=== PATIENT | male | born 1970 | race Caucasian/White ===

== ENCOUNTER 2017-09-25 04:52 | Emergency (ER) | payer SELFPAY ==
[~2017-09-25] VITALS: Ht 167.6 cm; Wt 77.0 kg
[2017-09-25 05:09] VITALS: Ht 167.6 cm; Wt 77.0 kg
[2017-09-25] MEDS ORDERED: LIDOCAINE 2%/EPI MPF (SDV) 20 ML VIAL INJ ONE (05:30)
[2017-09-25] MEDS ORDERED: DIPHTH/TET/ACEL PERTUSS (ADULT) 0.5 ML VIAL IM* ONE (05:30)
--- NOTE | 2017-09-25 06:25 | ERD ---
ER Documentation Chief Complaint Chief Complaint fell on glass bottle, 1cm facelac near edge of nose bridge, squirting blood HPI This is a 47-year-old male with no known past medical history who is presenting with a facial laceration after a fall. The patient admits to being intoxicated. He drinks 6-7 beers and tequila as well while watching the [employer] game last night. At some point, he lost his balance and fell. His face landed on a glass bottle and he sustained multiple lacerations to the face , one of which was bleeding. They could not get the bleeding controlled at home , so they came here for further evaluation. The patient does not endorse losing consciousness. He does not have a headache. He does not endorse vision changes. He has no neck or back pain. He has no cuts or abrasions or other signs of trauma to the rest of the body. The patient does have dried blood in his mouth, but he does not endorse any injury to his teeth or mouth. He states it was bleeding so much that he was getting into his mouth. He had no nausea or vomiting. He did not vomit blood. The patient denies feeling sick recently. The patient denies fever or chills. The patient denies lightheadedness or dizziness. The patient has had no chest pain or shortness of breath trouble breathing. The patient denies abdominal pain or changes to bowel movements or urination. The patient has had no focal deficits. The patient has had no weakness or numbness or tingling to the face or extremities. ROS All systems reviewed and are negative except as per history of present illness. Medications Home Meds Active Scripts Amoxicillin/Potassium Clav (Amox-Clav 875-125 mg Tablet) 875-125 mg Tab, 1 TAB PO BID for 7 Days, #14 TAB Prov:CARI CHO MD 09/25/17 Allergies Allergies: Coded Allergies: No Known Allergy (Unverified , 09/25/17) PMhx/Soc Medical and Surgical Hx: pt denies Medical Hx, pt denies Surgical Hx History of Surgery: No Hx Psychiatric Problems: No Hx Alcohol Use: Yes (SOCIALLY) Hx Substance Use: No Smoking Status: Never smoker FmHx Family History: No diabetes Physical Exam Vitals Vital Signs Date Time Temp Pulse Resp B/P Pulse Ox O2 Delivery O2 Flow Rate FiO2 09/25/17 09:09 88 20 115/88 100 Room Air 09/25/17 07:32 84 20 127/76 100 Room Air 09/25/17 05:21 92 17 144/90 100 Room Air 09/25/17 05:09 85 20 147/100 100 Physical Exam Const: No apparent distress, well-developed, well-nourished Head: Atraumatic, normocephalic Face: 2.5 cm linear nonbleeding laceration to the right forehead. 2.5 cm linear nonbleeding laceration to the right cheek. 3.0 cm angulated nonbleeding laceration to the right cheek. 0.5 cm punctate lesion with active bleeding. Soft tissue edema to the right cheek. Eyes: Normal Conjunctiva. Extraocular movements intact. ENT: Normal External Ears, Nose and Mouth. Neck: Full range of motion. ~ No meningismus. Resp: Clear to auscultation bilaterally Cardio: Regular rate and rhythm, no murmurs Abd: Soft, non tender, non distended. Normal bowel sounds Skin: No petechiae or rashes Back: No midline or flank tenderness Ext: No cyanosis, or edema Neur: Awake and alert, oriented 4. Cranial nerves intact. No facial droop. Normal strength and sensation in all extremities. Results 24 hrs Current Medications Medications (Trade) Dose Ordered Sig/Farida Route PRN Reason Start Time Stop Time Status Last Admin Dose Admin Lidocaine/ Epinephrine (Xylocaine 2%/ Epi Mpf(Sdv)) 20 ml ONCE ONCE INJ 09/25/17 05:30 09/25/17 05:31 DC 09/25/17 05:33 Diphtheria/ Tetanus/Acell Pertussis 0.5 ml 0.5 ml ONCE ONCE IM* 09/25/17 05:30 09/25/17 05:31 DC 09/25/17 05:33 Ampicillin Sodium/ Sulbactam Sodium (Unasyn 3gm/NS (Pmx)) 100 ml @ 100 mls/hr ONCE ONCE IVPB 09/25/17 08:00 09/25/17 08:59 DC 09/25/17 08:13 Procedures/MDM MDM Patient's presentation warrants further investigation. He admits to being intoxicated, but aside from his facial lacerations, his physical exam is reassuring. His vital signs are unremarkable. We will obtain a CT of the head and face for further evaluation as he is intoxicated and fell. IMAGING CTH FINDINGS: There is no intracranial hemorrhage, mass effect, or midline shift. No extra-axial fluid collection is seen. The ventricles and sulci are normal in size and configuration. The density of the brain is normal, and the faulkner white matter differentiation appears well-preserved. The visualized paranasal sinuses and osseous structures are grossly unremarkable. IMPRESSION: 1. No evidence of acute intracranial pathology. 2. The brain is normal in appearance. Electronically viewed and signed by .Jeremy Schwab MD, MD on 09/25/2017 06: 38 CT Face FINDINGS: Noted is a non depressed linear fracture on the anterior wall of the left maxillary sinus. There is no other facial fracture. The pterygoids are intact. Temporomandibular joints are intact with anatomic alignment. Noted is soft tissue swelling with laceration superficial to the inferior right maxilla. There is deformity of the nose which may represent cartilaginous injury. The globes are intact. No retrobulbar are or extra coronal hemorrhage is present. There is minimal mucoperiosteal thickening in the maxillary sinuses. The ostiomeatal complexes are patent. IMPRESSION: Nondisplaced fracture anterior wall left maxillary sinus. Right premaxillary soft tissue swelling with laceration. Deformity of the nose. Question cartilaginous injury. Electronically viewed and signed by .Jeremy Schwab MD, MD on 09/25/2017 06: 43 TREATMENT/DISPOSITION The patient was evaluated until clinically sober. Aside from his facial wounds and facial pain, the patient did not endorse any other injuries. He had no midline cervical spine tenderness and was able to range his neck in all directions without pain. The patient's cervical spine was clinically cleared. The patient did initially have blood on his tongue. But after washing out his mouth, there is no evidence of oral injury. The rest of the patient's exam is reassuring. Patient CT head was unremarkable. The patient's CT face did demonstrate a right sided maxillary sinus fracture with soft tissue edema that was palpable on exam. I do not see evidence of an open fracture after exploration of all the wounds. The patient did have pulsatile bleeding from a punctate lesion. This will be controlled with a [id number] stitch. Laceration Repair by me: Anesthesia: 1% lidocaine with epinephrine locally Location: Right cheek Tendon/Joint/Nerves: No injury Vascular Injury: pulsatile bleeding Foreign body: None detected after copious irrigation and exploration Technique: 1 figure of 8 stitch with 3-0 prolene with appropriate hemostasis Complexity: No subcutaneous sutures/mucosal repair/ edge excision Post Closure Length: 0.5 cm punctate lesion Laceration Repair by me: Anesthesia: 1% lidocaine with epinephrine locally Location: Right cheek Tendon/Joint/Nerves: No injury Foreign body: None detected after copious irrigation and exploration Technique: 4 Simple Interrupted Sutures Complexity: No subcutaneous sutures/mucosal repair/ edge excision Post Closure Length: 3.0 cm Laceration Repair by me: Anesthesia: 1% lidocaine with epinephrine locally Location: right cheek Tendon/Joint/Nerves: No injury Foreign body: None detected after copious irrigation and exploration Technique: 3 Simple Interrupted Sutures Complexity: No subcutaneous sutures/mucosal repair/ edge excision Post Closure Length: 2.5 cm Laceration Repair by me: Anesthesia: 1% lidocaine with epinephrine locally Location: Right forehead Tendon/Joint/Nerves: No injury Foreign body: None detected after copious irrigation and exploration Technique: Simple Interrupted Sutures Complexity: No subcutaneous sutures/mucosal repair/ edge excision Post Closure Length: 2.5 cm Patient's bleeding was easily controlled in the department and there is no indication of anemia. No evidence of compartment syndrome, neurologic injury, vascular injury, open joint, tendon laceration, or foreign body. Patient is appropriate for outpatient follow up. 48 hour wound check. Scar minimization instructions given. Is observed in the emergency department until clinically sober. His wounds remained stable with achievement of hemostasis. He did not endorse any other injuries aside from what is described above. At this time, the patient is stable for discharge. Bacitracin was placed on each of the wounds. The patient was given Unasyn in the emergency department. He will be sent home with a course of Augmentin. He will be educated on home wound care. He needs to follow-up with his doctor in 2-3 days for reevaluation. If he is unable to see anyone an outpatient in 2-3 days, he may also return to the emergency department for reevaluation. He may be evaluated in the ER for any other concerns as well. His blood pressure was transiently elevated in the emergency department. This will also need to be reassessed by primary doctor in 2-3 days. The patient expressed understanding of this as well. Departure Diagnosis: Primary Impression: Facial laceration Encounter type: initial encounter Qualified Code: S01.81XA - Facial laceration, initial encounter Additional Impressions: Alcohol intoxication Complication of substance-induced condition: with unspecified complication Qualified Code: F10.929 - Alcoholic intoxication with complication Maxillary sinus fracture Encounter type: initial encounter Fracture type: closed Qualified Code: S02.401A - Closed fracture of maxillary sinus, initial encounter Nasal deformity, acquired Condition: Stable CARI CHO MD Sep 25, 2017 06:25
--- NOTE | 2017-09-25 06:39 | RADRPT ---
PROCEDURE: CT Brain without contrast. CLINICAL INDICATION: Trauma TECHNIQUE: A CT of the brain was performed on a multidetector CT scanner utilizing axial imaging f rom the skull base through the vertex without IV contrast. Multiplanar reformatted images were made . Images were reviewed on a PACS workstation. The CTDIvol is 44 mGy and the DLP is 720 mGycm. One or more of the following dose reduction techniques were utilized: 1.) Automated exposure control 2.) Adjustment of the mA +/- kV according to patient's size 3.) Use of iterative reconstruction technique. COMPARISON: None FINDINGS: There is no intracranial hemorrhage, mass effect, or midline shift. No extra-axial fluid collection is seen. The ventricles and sulci are normal in size and configuration. The density of the brain is normal, and the faulkner white matter differentiation appears well-preserved. The visualized paranasal sinuses and osseous structures are grossly unremarkable. IMPRESSION: 1. No evidence of acute intracranial pathology. 2. The brain is normal in appearance. .Jeremy Schwab MD, MD Date Time Electronically viewed and signed by .Jeremy Scwhab MD, on 09/25/2017 06:38 .A/
--- NOTE | 2017-09-25 06:43 | RADRPT ---
PROCEDURE: CT facial bones CLINICAL INDICATION: Trauma TECHNIQUE: A CT of the facial bones was performed on a multidetector CT scanner utilizing high-res olution axial images. Sagittal, coronal, and multiplanar reformatted images were made. Additionall y, 3-D reformatted images were made. The CTDIvol is 30 mGy and the DLP is 623 mGy-cm. One or more of the following dose reduction techniques were utilized: 1.) Automated exposure control 2.) Adjustment of the mA +/- kV according to patient's size 3.) Use of iterative reconstruction technique. COMPARISON: None. FINDINGS: Noted is a non depressed linear fracture on the anterior wall of the left maxillary sinus. There is no other facial fracture. The pterygoids are intact. Temporomandibular joints are intact with anatom ic alignment. Noted is soft tissue swelling with laceration superficial to the inferior right maxill a. There is deformity of the nose which may represent cartilaginous injury. The globes are intact. N o retrobulbar are or extra coronal hemorrhage is present. There is minimal mucoperiosteal thickening in the maxillary sinuses. The ostiomeatal complexes are patent. IMPRESSION: Nondisplaced fracture anterior wall left maxillary sinus. Right premaxillary soft tissue swelling with laceration. Deformity of the nose. Question cartilaginous injury. .Jeremy Schwab MD, Date Time Electronically viewed and signed by .Jeremy Schwab MD, MD on 09/25/2017 06:43 .A/
[2017-09-25] MEDS ORDERED: AMPICILLIN/SULB 3 GM/NS (PMX) 100 ML IVPB ONE (08:00)
[2017-09-25] MEDS ORDERED: AMOX1TAB10 PO (08:38)
[2017-09-25 09:09] VITALS: BP 115/88; PULSE 88; RESP 20
== END 2017-09-25 10:03 | disposition home or self-care (01) ==
LOC: E/R 04:52
DX: S01.81XA Laceration without foreign body of other part of head, initial encounter (principal); F10.929 Alcohol use, unspecified with intoxication, unspecified; S02.401A Maxillary fracture, unspecified side, initial encounter for closed fracture; M95.0 Acquired deformity of nose; W25.XXXA Contact with sharp glass, initial encounter; Y92.9 Unspecified place or not applicable; Z23 Encounter for immunization
CPT/HCPCS: 12014; 70450; 70486; 90471; 90715; 99285; J0295

== ENCOUNTER 2017-09-27 16:07 | Emergency (ER) | payer MEDICAID ==
[~2017-09-27] VITALS: Ht 172.7 cm; Wt 83.0 kg
[~2017-09-27 16:07] MED LIST: AMOX1TAB10 PO
[2017-09-27 16:25] VITALS: Ht 172.7 cm; Wt 83.0 kg
[2017-09-27] MEDS ORDERED: BACITRACIN 0.9 GM OINT TOP ONE (18:00)
--- NOTE | 2017-09-27 18:24 | ERD ---
ER Documentation Chief Complaint Chief Complaint 2 day wound check HPI 47-year-old male comes in for wound check from falling 2 days ago he has multiple lacerations on the right side of the face. Patient states that he has been doing well, no headaches, no visual changes, no vomiting. ROS All systems reviewed and are negative except as per history of present illness. Medications Home Meds Active Scripts Amoxicillin/Potassium Clav (Amox-Clav 875-125 mg Tablet) 875-125 mg Tab, 1 TAB PO BID for 7 Days, #14 TAB Prov:CARI CHO MD 09/25/17 Allergies Allergies: Coded Allergies: No Known Allergy (Unverified , 09/25/17) PMhx/Soc Medical and Surgical Hx: pt denies Medical Hx, pt denies Surgical Hx History of Surgery: No Hx Psychiatric Problems: No Hx Alcohol Use: Yes (SOCIALLY) Hx Substance Use: No Smoking Status: Never smoker Physical Exam Vitals Vital Signs Date Time Temp Pulse Resp B/P Pulse Ox O2 Delivery O2 Flow Rate FiO2 09/27/17 16:25 98.5 83 16 173/106 98 Physical Exam General: Well-developed, well-nourished. The patient appears in no acute distress. HEENT: Head is normocephalic. There is a laceration above the right eyebrow with 3 simple interrupted sutures. There is a laceration on the right medial cheek with 4 simple interrupted sutures. There is a small laceration in the mid cheek with one [id number] stitch. 1 laceration of the lateral right cheek with 3 simple interrupted sutures. There is no dehiscence, erythema or drainage to these wounds appear Neck: Supple. Nontender. Lungs: Clear to auscultation. Normal air movement. Heart: Regular rate and rhythm. S1 and S2 are normal. No murmurs, gallops, or rubs. Abdomen: Nondistended. Extremities: No clubbing or cyanosis. Moving extremities x 4. No weakness. Neurologic: Alert and oriented 3. No focal deficits. Normal speech and gait. Skin: Normal turgor. No rash or lesions. Results 24 hrs Current Medications Medications (Trade) Dose Ordered Sig/Farida Route PRN Reason Start Time Stop Time Status Last Admin Dose Admin Bacitracin (Bacitracin Oint (Ud)) 1 applic ONCE ONCE TOP 09/27/17 18:00 09/27/17 18:01 DC 09/27/17 18:01 Procedures/MDM Wound shows no evidence of infection, foreign body, neurologic injury, vascular injury, open joint or tendon laceration. Patient appropriate for outpatient follow up. Departure Diagnosis: Primary Impression: Encounter for wound re-check Condition: Good Patient Instructions: Wound Check, Lac F/U (No Infection) Additional Instructions: SUTURE REMOVAL:CONSULTE A MURRAY MDICO PARA SACAR MURRAY PUNTOS.PARA LA HELLEN 5-6 nicholas. SACHA LITTLE PA-C Sep 27, 2017 18:24
== END 2017-09-27 18:00 | disposition home or self-care (01) ==
LOC: FTE 16:07
DX: Z48.01 Encounter for change or removal of surgical wound dressing (principal)
CPT/HCPCS: 99282

== ENCOUNTER 2017-10-01 20:44 | Emergency (ER) | payer MEDICAID ==
[~2017-10-01] VITALS: Wt 82.6 kg
--- NOTE | 2017-10-01 22:39 | ERD ---
ER Documentation Chief Complaint Chief Complaint pt. here for stitch removal on face and wound check HPI 47-year-old male presents for suture removal after a fall 8 days ago. Patient was evaluated here after he was under the influence of alcohol and fell causing multiple lacerations to the right side of his face. Since then he has not had any complaints, denies any headaches, vomiting or dizziness. Patient states that his sutures have not been bothering him. He denies fevers, chills, drainage. ROS All systems reviewed and are negative except as per history of present illness. Medications Home Meds Active Scripts Amoxicillin/Potassium Clav (Amox-Clav 875-125 mg Tablet) 875-125 mg Tab, 1 TAB PO BID for 7 Days, #14 TAB Prov:CARI CHO MD 09/25/17 Allergies Allergies: Coded Allergies: No Known Allergy (Unverified , 10/01/17) PMhx/Soc Medical and Surgical Hx: pt denies Medical Hx, pt denies Surgical Hx History of Surgery: No Hx Psychiatric Problems: No Hx Alcohol Use: Yes (SOCIALLY) Hx Substance Use: No Hx Tobacco Use: No Smoking Status: Never smoker Physical Exam Vitals Vital Signs Date Time Temp Pulse Resp B/P Pulse Ox O2 Delivery O2 Flow Rate FiO2 10/01/17 20:48 97.8 76 18 127/77 99 Physical Exam General: Well-developed, well-nourished. The patient appears in no acute distress. HEENT: Head is normocephalic, atraumatic. No scleral icterus. 3 simple interrupted sutures above the right eyebrow, no dehiscence, erythema or drainage. Also healed laceration on the right upper cheek with 3 simple interrupted sutures. 3 simple interrupted sutures intact, and the right lateral cheek. Also 2 simple interrupted sutures in the middle of the cheek. And once figure of 8 suture intact to the medial cheek. Neck: Supple. Nontender. Lungs: Clear to auscultation. Normal air movement. Heart: Regular rate and rhythm. S1 and S2 are normal. No murmurs, gallops, or rubs. Abdomen: Nondistended. Extremities: No clubbing or cyanosis. Moving extremities x 4. No weakness. Neurologic: Alert and oriented 3. No focal deficits. Normal speech and gait. Skin: Normal turgor. No rash or lesions. Procedures/MDM Suture Removal by me: Sutures removed with tweezers and scissors without incident. Sutures are removed, on the right eyebrow, right upper cheek, right lateral cheek, right middle cheek, and very medial as well. Wound shows no evidence of infection, foreign body, neurologic injury, vascular injury, open joint or tendon laceration. Patient to follow up PRN. Departure Diagnosis: Primary Impression: Visit for suture removal Additional Impression: Encounter for wound re-check Condition: Good Patient Instructions: Suture Removal, No Complication SACHA LITTLE PA-C Oct 01, 2017 22:39
== END 2017-10-01 22:30 | disposition home or self-care (01) ==
LOC: FTE 20:44
DX: Z48.02 Encounter for removal of sutures (principal)
CPT/HCPCS: 99281